=== PATIENT | female | born 1975 | race Hispanic/Latino ===

== ENCOUNTER 2017-05-14 23:47 | Emergency (ER) | payer SELFPAY ==
[2017-05-15] MEDS ORDERED: Acetaminophen 500 MG TAB ONE (00:12)
== END 2017-05-15 03:54 | disposition home or self-care (01) ==
LOC: ERS 23:47
DX: J11.1 Influenza due to unidentified influenza virus with other respiratory manifestations (principal); E11.9 Type 2 diabetes mellitus without complications; I10 Essential (primary) hypertension
CPT/HCPCS: 87804; 99283

== ENCOUNTER 2021-04-08 20:04 | Emergency (ER) | payer SELFPAY ==
[2021-04-08] MEDS ORDERED: Lidocaine 4% Cream 5 GM TUBE w/ Tegaderm ONE (21:18)
== END 2021-04-08 21:47 | disposition home or self-care (01) ==
LOC: ERS 20:04
DX: M25.571 Pain in right ankle and joints of right foot (principal); B07.0 Plantar wart; E11.9 Type 2 diabetes mellitus without complications; I10 Essential (primary) hypertension
CPT/HCPCS: 99283